=== PATIENT | female | born 1975 | race American Indian/Alaskan Native ===

== ENCOUNTER 2016-05-04 21:53 | Emergency (ER) | payer SELFPAY ==
[2016-05-04 22:15] VITALS: BP 133/84
[2016-05-04] MEDS ORDERED: DUONEB 0.5 MG-3 MG/3 ML SOLN IH ONE (22:19)
[2016-05-04] MEDS ORDERED: TESSALON PERLES PO ONE (22:48)
[2016-05-04] MEDS ORDERED: NORCO 5/325 PO ONE (22:48)
[2016-05-04 22:53] LABS: Basophils % (Auto) 0.5 % (0.0-1.8); Eosinophils % (Auto) 2.5 % (0.0-4.3); Hematocrit 29.4 % (30.3-42.9); Hemoglobin 8.8 gm/dl (10.1-14.3); Mean Corpuscular HGB Conc 30 % (30-34); Platelet Count 260 K/mm3 (140-440); Red Blood Count 4.29 M/mm3 (3.65-5.03); Red Cell Distribution Width 19.3 % (13.2-15.2); White Blood Count 4.5 K/mm3 (4.5-11.0)
--- NOTE | 2016-05-04 22:56 | Emergency Department Report ---
HPI - General Chief Complaint: Dyspnea/Respdistress Time Seen by Provider: 05/04/16 22:18 - HPI HPI: The patient is a 40-year-old female with a history of long-standing tobacco use and suspected COPD, who presents for evaluation of back pain. The patient reports back pain for the past one day, concentrated to the lower back, 9/10 in severity, aching in quality, exacerbated with movement of the lower back. The patient has secondary complaint of cough productive of yellow and green sputum for many months, and associated intermittent dyspnea with exertion, at recent baseline per the patient. Regarding her back pain, the patient denies blunt trauma to the back, fall, fever, chills, night sweats, saddle anesthesia, paresthesias, numbness or tingling in the legs, leg weakness, urine or bowel incontinence or retention, difficulty ambulating, or other focal neurological deficits. Regarding her cough and dyspnea, the patient denies fever, chest pain , hemoptysis, syncope, unilateral leg swelling, history of DVT or PE, recent immobilization, history of cancer ED Past Medical Hx - Past Medical History Previous Medical History?: Yes Additional medical history: HX BRONCHITIS - Surgical History Past Surgical History?: Yes Additional Surgical History: - Social History Smoking Status: Current Every Day Smoker Substance Use Type: Alcohol, Marijuana - Medications Home Medications: Home Medications Medication Instructions Recorded Confirmed Last Taken Type ALBUTEROL Inhaler [ProAir HFA 2 puff IH QID PRN #1 inhalation 05/04/16 Unknown Rx Inhaler] Azithromycin [Zithromax Z-DEBORAH] 250 mg PO QDAY #6 tablet 05/04/16 Unknown Rx Benzonatate [Tessalon Perles] 100 mg PO Q8HR #14 capsule 05/04/16 Unknown Rx traMADol [Ultram 50 MG tab] 50 mg PO Q6HR PRN #15 tablet 05/04/16 Unknown Rx ED Review of Systems ROS: Stated complaint: DIFFICULTY IN BREATHING, BACK PAIN Other details as noted in HPI Constitutional: denies: fever ENT: denies: throat or neck pain Respiratory: reports cough, shortness of breath Cardiovascular: denies: chest pain Endocrine: denies unexplained weight loss or gain Gastrointestinal: denies: abdominal pain, nausea Genitourinary: denies: dysuria Musculoskeletal: reports back pain denies: leg swelling Skin: denies: rash Neurological: denies: headache Hematological/Lymphatic: denies: easy bleeding or easy bruising Psych: denies sadness or hopelessness Physical Exam - Physical Exam Vital Signs: Vital Signs 05/04/16 05/04/16 05/04/16 21:59 22:20 22:21 Temperature 99.0 F Pulse Rate 77 77 Respiratory 15 15 15 Rate Blood Pressure 133/84 Blood Pressure 133/84 [Left] O2 Sat by Pulse 100 100 100 Oximetry Physical Exam: General: well-nourished, well-developed, no acute distress Head: Normocephalic, atraumatic Eyes: normal sclera ENT: Mucous membranes are pink and moist Neck: trachea midline, neck supple, No neck stiffness, no cervical adenopathy Respiratory: Breath sounds equal bilaterally, no wheezing, rales, or rhonchi Cardio: S1 and S2 present, no murmurs, rubs, gallops, capillary refill is brisk Abdomen: Normoactive bowel sounds, soft abdomen, no tenderness Chest WALL/Back: Inspection of the back is unremarkable, Tenderness to palpation present to bilateral lumbar paraspinal musculature present, pain is elicited with flexion at the hip, normal active range of motion at the hip intact, no spinous step-off or obvious deformity, ipsi-lateral and contralateral straight leg raise tests are negative. On extremity testing, compartments are soft and pliable, no obvious gross motor strength deficit, 5+ motor strength, including extension of the great toe bilaterally, no muscular atrophy, spasticity, fasciculations, or clonus, no obvious gross sensation deficit including web space between 1st and 2nd toes, reflexes 2+ & symmetric on DTR testing at the knee and ankle joints, distal pulses intact. Musc: No pitting edema Skin: No rash Neuro: no facial drooping, normal speech Psych: Normal affect ED Course Vital Signs 05/04/16 05/04/16 05/04/16 21:59 22:20 22:21 Temperature 99.0 F Pulse Rate 77 77 Respiratory 15 15 15 Rate Blood Pressure 133/84 Blood Pressure 133/84 [Left] O2 Sat by Pulse 100 100 100 Oximetry ED Medical Decision Making - Medical Decision Making The patient was seen and examined by myself. The patient is placed on a playground monitor and continuous pulse ox. On initial evaluation, the patient was found to be in no distress. Evaluation orders were placed. EKG was negative for findings suggestive of acute cardiac infarct. The patient is given Tessalon Perles for their cough and a tab of [place] for pain. Lab results were not concerning. Chest x-ray is negative for pulmonary vessel congestion, pleural effusion, focal consolidation, or other acute cardio pulmonary disease process. The patient is stable for discharge with outpatient follow-up. The patient is given follow-up and return instructions. The patient expressed understanding and agreed with the plan. The patient is discharged in stable condition. Critical care attestation.: If time is entered above; I have spent that time in minutes in the direct care of this critically ill patient, excluding procedure time. ED Disposition Clinical Impression: Acute bilateral low back pain without sciatica Acute bronchitis Qualifiers: Bronchitis organism: unspecified organism Qualified Code(s): J20.9 - Acute bronchitis, unspecified Disposition: DISCHARGED TO HOME OR SELFCARE Is pt being admited?: No Does the pt Need Aspirin: No Condition: Stable Instructions: Acute Bronchitis (ED), Low Back Strain (ED), Acute Low Back Pain (ED), How to Stop Smoking (ED) Referrals: [facility] [Provider Group] - 3-5 Days Time of Disposition: 22:50
[2016-05-04 23:11] LABS: Mean Corpuscular Volume 69 fl (79-97)
[2016-05-04 23:12] LABS: Mean Corpuscular Hemoglobin 21 pg (28-32)
[2016-05-04 23:15] LABS: Alanine Aminotransferase 8 units/L (7-56); Albumin 3.3 g/dL (3.9-5); Alkaline Phosphatase 76 units/L (35-129); Anion Gap 15 mmol/L; Bilirubin,Total < 0.2 mg/dL (0.1-1.2); Blood Urea Nitrogen 10 mg/dL (7-17); Calcium 8.3 mg/dL (8.4-10.2); Carbon Dioxide 22 mmol/L (22-30); Chloride 103.1 mmol/L (98-107); Glucose 89 mg/dL (65-100); Sodium 136 mmol/L (137-145); Total Protein 6.7 g/dL (6.3-8.2)
--- NOTE | 2016-05-05 08:42 | XRay Report ---
AP CHEST : 05/04/16 21:53:00 CLINICAL: Chest pain. COMPARISON:None FINDINGS: The heart is upper limits of normal in size with a left ventricular contour.Mild central vascular prominence and bilateral calcified hilar granulomata. Lungs are clear except for mild subsegmental atelectasis in the right lung base. No airspace disease or pleural effusion. The bones and soft tissues are unremarkable. IMPRESSION: Old granulomatous disease. No acute cardiopulmonary process.
== END 2016-05-05 00:05 | disposition home or self-care (01) ==
LOC: ED 21:53
DX: J20.9 Acute bronchitis, unspecified (principal); M54.5 Low back pain; F17.200 Nicotine dependence, unspecified, uncomplicated; F12.90 Cannabis use, unspecified, uncomplicated
CPT/HCPCS: 36415; 71010; 80053; 85025; 94640